=== PATIENT | male | born 1950 | race Caucasian/White ===

== ENCOUNTER 2020-02-18 05:16 | Inpatient (IN) ==
[2020-02-18] MEDS ORDERED: PANTOPRAZOLE 40 MG VIAL IV STA (05:45)
[2020-02-18] MEDS ORDERED: SODIUM CHLORIDE 0.9% 500 ML IV STA (05:45)
[2020-02-18] MEDS ORDERED: ONDANSETRON 4 MG/2 ML VIAL IV STA (05:45)
[2020-02-18 07:08] LABS: Alanine Aminotransferase 13 U/L (16-61); Albumin 1.9 G/DL (3.4-5.0); Alkaline Phosphatase 42 U/L (45-117); Amylase 53 U/L (25-115); Aspartate Amino Transferase 14 U/L (0-37); Bilirubin,Total < 0.39 MG/DL (0.2-1.0); Blood Urea Nitrogen 29 MG/DL (7-18); Estimated Glom Filtration Rate 55 ML/MIN; Glucose 245 MG/DL (74-106); Osmolality,Calculated 290.5 MOS/KG (273-304); Total Protein 4.7 G/DL (6.4-8.3); Troponin I 0.027 NG/ML (0.00-0.045)
[2020-02-18 07:11] LABS: Basophils % 0.1 % (0.0-0.8); Eosinophils % 0.4 % (0.00-10.9); Hematocrit 21.2 VOL% (42.0-52.0); Hemoglobin 6.5 GM/DL (14.0-18.0); Immature Granulocytes % 4.4 %; Immature Granulocytes Absolute 0.33 #; Lymphocytes # 0.6 10*3/uL (1.4-4.0); Mean Corpuscular HGB Conc 30.7 GM/DL (32-36); Mean Corpuscular Volume 89.8 FL (87-102); Mean Platelet Volume 12.9 FL (9.6-12.0); Monocytes % 4.8 % (1.7-12.7); Neutrophils % 82.3 % (38.7-73.9); Platelet Count 114 T/CUMM (130-400); Red Blood Count 2.36 MC/CUMM (3.8-5.5); White Blood Count 7.5 T/CUMM (4-12)
[2020-02-18 07:16] LABS: INR 1.1; PT Patient Result 11.9 SECS (9.8-11.9)
[2020-02-18] MEDS ORDERED: SODIUM CHLORIDE 0.9% 1,000 ML IV PRN ×4 (07:42→17:28)
[2020-02-18] MEDS ORDERED: DEXTROSE 50% 25 GM/50 ML VIAL IV PRN (08:20)
[2020-02-18] MEDS ORDERED: GLUCAGON 1 MG VIAL IM PRN (08:20)
[2020-02-18] MEDS ORDERED: FUROSEMIDE 20 MG/2 ML VIAL IV ONE (08:23)
[2020-02-18] MEDS ORDERED: MAGNESIUM SULF RIDER 2 GM in PREMIX 1 EACH IV ONE (08:24)
[2020-02-18] MEDS ORDERED: SODIUM CHLORIDE 0.9% 1,000 ML IV SCH (08:30)
[2020-02-18] MEDS ORDERED: PANTOPRAZOLE 40 MG VIAL IV SCH (09:00)
[2020-02-18 13:08] LABS: Apearance,Urine CLEAR (Clear); Bilirubin,Urine Negative (Negative); Blood, Urine Small mg/dL (Negative); Glucose,Urine (UA) Negative (Negative); Hyaline Casts,Urine 4 /LPF (0-3); Ketones,Urine Negative (Negative); Mucus,Urine Occasional /LPF (Occasional); Nitrite,Urine Negative (Negative); Protein,Urine Negative; RBC,Urine 20 /HPF (0-4); Squamous Epithelial Cell,Urine Occasional /HPF (0-10); Urine Color Yellow (Yellow); Urine Specific Gravity 1.014 (1.001-1.035); Urine Urobilinogen < 2.0 EU/DL (0.2-1.0); WBC,Urine <1 /HPF (0-6)
[2020-02-18] MEDS: PANTOPRAZOLE 40 MG VIAL IV SCH ×2 (15:07→21:08)
[2020-02-18] MEDS: INSULIN LISPRO 100 UNIT/ML SUBCUT SCH ×2 (16:42→19:13)
[2020-02-18] MEDS ORDERED: LACTATED RINGERS 500 ML IV ONE (17:24)
[2020-02-18 17:40] LABS: Basophils % 0.3 % (0.0-0.8); Eosinophils # 0.1 10*3/uL (0.0-0.87); Eosinophils % 0.9 % (0.00-10.9); Hematocrit 20.1 VOL% (42.0-52.0); Immature Granulocytes % 5.6 %; Immature Granulocytes Absolute 0.65 #; Lymphocytes # 1.3 10*3/uL (1.4-4.0); Lymphocytes % 11.3 % (21.2-54.2); Mean Corpuscular HGB Conc 30.8 GM/DL (32-36); Mean Corpuscular Volume 92.6 FL (87-102); Mean Platelet Volume 11.4 FL (9.6-12.0); Monocytes % 7.3 % (1.7-12.7); Neutrophils % 74.6 % (38.7-73.9); Platelet Count 188 T/CUMM (130-400); Red Blood Count 2.17 MC/CUMM (3.8-5.5); Red Cell Distribution Width 17.2 % (9.3-17.3); White Blood Count 11.5 T/CUMM (4-12)
[2020-02-18 17:53] LABS: Hemoglobin 6.2 GM/DL (14.0-18.0)
[2020-02-18] MEDS ORDERED: POLYETHYLENE GLYCOL 3350/ELECTROLYTES 4,000 ML BOTTLE NG ONE (18:00)
[2020-02-18 18:37] LABS: Lymphocytes 4 % (20-55); Microcytosis 1+; Polychromasia 1+; Segmented Neutrophils 91 % (50-85); Total Cells Counted 100
[2020-02-18 18:38] LABS: Ovalocytes 1+; Platelet Estimate Adequate
[2020-02-18] MEDS: BISACODYL 5 MG TABLET PO SCH (18:57)
[2020-02-18] MEDS ORDERED: MAGNESIUM CITRATE 300 ML BOTTLE PO ONE (21:00)
[2020-02-18] MEDS ORDERED: ONDANSETRON 4 MG/2 ML VIAL IV PRN (22:48)
[2020-02-19] MEDS: INSULIN LISPRO 100 UNIT/ML SUBCUT SCH ×4 (00:28→18:05)
[2020-02-19] MEDS: SODIUM CHLORIDE 0.9% 1,000 ML IV SCH ×3 (00:52→19:57)
[2020-02-19] MEDS: BISACODYL 5 MG TABLET PO SCH ×2 (00:52→08:34)
[2020-02-19 01:28] LABS: Alanine Aminotransferase 18 U/L (16-61); Albumin 1.6 G/DL (3.4-5.0); Alkaline Phosphatase 27 U/L (45-117); Aspartate Amino Transferase 25 U/L (0-37); Bilirubin,Total < 0.39 MG/DL (0.2-1.0); Blood Urea Nitrogen 42 MG/DL (7-18); Calcium 6.4 MG/DL (8.5-10.1); Estimated Glom Filtration Rate 44 ML/MIN; Glucose 176 MG/DL (74-106); Osmolality,Calculated 291.5 MOS/KG (273-304); Total Protein 3.7 G/DL (6.4-8.3)
[2020-02-19 01:52] LABS: Basophils # 0.1 10*3/uL (0.0-0.2); Basophils % 0.5 % (0.0-0.8); Eosinophils % 0.4 % (0.00-10.9); Hematocrit 22.2 VOL% (42.0-52.0); Hemoglobin 7.3 GM/DL (14.0-18.0); Immature Granulocytes % 4.9 %; Immature Granulocytes Absolute 0.48 #; Lymphocytes # 1.2 10*3/uL (1.4-4.0); Lymphocytes % 12.3 % (21.2-54.2); Mean Corpuscular HGB Conc 32.9 GM/DL (32-36); Mean Corpuscular Volume 89.5 FL (87-102); Mean Platelet Volume 12.1 FL (9.6-12.0); Monocytes % 5.7 % (1.7-12.7); Neutrophils % 76.2 % (38.7-73.9); Platelet Count 112 T/CUMM (130-400); Red Blood Count 2.48 MC/CUMM (3.8-5.5); Red Cell Distribution Width 15.8 % (9.3-17.3); White Blood Count 9.7 T/CUMM (4-12)
[2020-02-19 03:00] LABS: Hematocrit 20.1 VOL% (42.0-52.0); Hemoglobin 6.6 GM/DL (14.0-18.0)
[2020-02-19] MEDS ORDERED: SODIUM CHLORIDE 0.9% 1,000 ML IV PRN (03:22)
[2020-02-19] MEDS ORDERED: PROMETHAZINE 25 MG/1 ML VIAL IM ONE (03:42)
[2020-02-19] MEDS ORDERED: HYDROmorphone 2 MG/1 ML VIAL IV PRN (06:15)
[2020-02-19] MEDS: PANTOPRAZOLE 40 MG VIAL IV SCH ×3 (07:45→21:11)
[2020-02-19] MEDS ORDERED: SUGAMMADEX 200 MG/2 ML VIAL IV ONE ×2 (08:07→12:38)
[2020-02-19] MEDS ORDERED: LIDOCAINE 2% 5 ML VIAL ONE ×2 (08:07→15:40)
[2020-02-19] MEDS ORDERED: MIDAZOLAM 2 MG/2 ML VIAL ONE (08:08)
[2020-02-19] MEDS ORDERED: SCOPOLAMINE 1.5 MG PATCH TRANSDERM ONE (08:08)
[2020-02-19] MEDS ORDERED: fentaNYL 100 MCG/2 ML VIAL ONE ×2 (08:08→15:40)
[2020-02-19] MEDS ORDERED: ONDANSETRON 4 MG/2 ML VIAL ONE (08:08)
[2020-02-19] MEDS ORDERED: SUCCINYLCHOLINE 200 MG/10 ML VIAL ONE ×2 (08:09→15:41)
[2020-02-19] MEDS ORDERED: ETOMIDATE 40 MG/20 ML VIAL IV ONE ×2 (08:09→15:40)
[2020-02-19] MEDS ORDERED: ROCURONIUM 100 MG/10 ML VIAL IV ONE ×2 (08:09→15:41)
[2020-02-19] MEDS ORDERED: CALCIUM GLUCONATE 1,000 MG in SODIUM CHLORIDE 0.9% 100 ML IV ONE (09:05)
[2020-02-19] MEDS ORDERED: HYDROCORTISONE 100 MG VIAL ONE (09:12)
[2020-02-19] MEDS ORDERED: SEVOFLURANE 1 UNIT/15 MINUTE INH ONE ×2 (09:12→15:40)
[2020-02-19] MEDS ORDERED: SODIUM CHLORIDE 0.9% 250 ML IV ONE (09:12)
[2020-02-19] MEDS ORDERED: PHENYLEPHRINE 10 MG/1 ML VIAL IV ONE (09:12)
[2020-02-19] MEDS ORDERED: LACTATED RINGERS 1,000 ML IV ONE ×2 (09:12→15:41)
[2020-02-19 10:10] LABS: Hematocrit 24.4 VOL% (42.0-52.0)
[2020-02-19 10:11] LABS: Hemoglobin 8.2 GM/DL (14.0-18.0)
[2020-02-19] MEDS ORDERED: HEPARIN/NACL 0.9% 2 UNITS/ML 2,000 ML IV ONE (12:34)
[2020-02-19] MEDS ORDERED: ePHEDrine 50 MG/ML VIAL ONE (15:32)
[2020-02-19] MEDS ORDERED: PHENYLEPHRINE 1 MG/10 ML SYRINGE IV ONE (15:40)
[2020-02-19] MEDS ORDERED: GLYCOPYRROLATE 0.4 MG/2 ML VIAL ONE (15:40)
[2020-02-19] MEDS ORDERED: NEOSTIGMINE 10 MG/10 ML VIAL ONE (15:41)
[2020-02-20] MEDS: INSULIN LISPRO 100 UNIT/ML SUBCUT SCH ×4 (00:50→18:50)
[2020-02-20] MEDS: SODIUM CHLORIDE 0.9% 1,000 ML IV SCH (02:10)
[2020-02-20 03:53] LABS: Basophils % 0.2 % (0.0-0.8); Eosinophils # 0.2 10*3/uL (0.0-0.87); Immature Granulocytes % 6.5 %; Immature Granulocytes Absolute 0.59 #; Lymphocytes % 10.4 % (21.2-54.2); Mean Corpuscular HGB Conc 33.1 GM/DL (32-36); Mean Corpuscular Volume 89.9 FL (87-102); Mean Platelet Volume 10.9 FL (9.6-12.0); Monocytes % 8.2 % (1.7-12.7); NRBC # 0.03 10*3/uL; Neutrophils % 72.7 % (38.7-73.9); Platelet Count 64 T/CUMM (130-400); Red Blood Count 1.88 MC/CUMM (3.8-5.5); Red Cell Distribution Width 16.3 % (9.3-17.3); White Blood Count 9.1 T/CUMM (4-12)
[2020-02-20 03:56] LABS: Hemoglobin 5.6 GM/DL (14.0-18.0)
[2020-02-20 03:57] LABS: Hematocrit 16.9 VOL% (42.0-52.0)
[2020-02-20] MEDS ORDERED: SODIUM CHLORIDE 0.9% 1,000 ML IV PRN (04:09)
[2020-02-20 04:24] LABS: Calcium 6.4 MG/DL (8.5-10.1); Osmolality,Calculated 286.7 MOS/KG (273-304)
[2020-02-20 04:34] LABS: Eosinophils 5 % (0-10); Hypochromasia 2+; Lymphocytes 9 % (20-55); Microcytosis 1+; Segmented Neutrophils 83 % (50-85); Total Cells Counted 100
[2020-02-20] MEDS ORDERED: MAGNESIUM CITRATE 300 ML BOTTLE PO ONE (08:41)
[2020-02-20] MEDS: PANTOPRAZOLE 40 MG VIAL IV SCH (09:05)
[2020-02-20 15:00] LABS: Basophils # 0.1 10*3/uL (0.0-0.2); Basophils % 0.4 % (0.0-0.8); Eosinophils # 0.1 10*3/uL (0.0-0.87); Eosinophils % 0.7 % (0.00-10.9); Hematocrit 20.7 VOL% (42.0-52.0); Immature Granulocytes % 4.7 %; Immature Granulocytes Absolute 0.56 #; Lymphocytes # 1.4 10*3/uL (1.4-4.0); Lymphocytes % 11.4 % (21.2-54.2); Mean Corpuscular HGB Conc 33.3 GM/DL (32-36); Mean Corpuscular Volume 91.6 FL (87-102); Mean Platelet Volume 11.1 FL (9.6-12.0); Monocytes % 4.9 % (1.7-12.7); NRBC # 0.13 10*3/uL; Neutrophils % 77.9 % (38.7-73.9); Red Blood Count 2.26 MC/CUMM (3.8-5.5); Red Cell Distribution Width 15.5 % (9.3-17.3)
[2020-02-20 15:08] LABS: Hemoglobin 6.9 GM/DL (14.0-18.0); Platelet Count 114 T/CUMM (130-400)
[2020-02-20 15:37] LABS: Band Neutrophils 1 % (0-10); Hypochromasia Slight; Lymphocytes 6 % (20-55); Platelet Estimate Adequate; Segmented Neutrophils 90 % (50-85); Total Cells Counted 100
[2020-02-20 17:19] LABS: ABG Base Excess -19.5 MMOL/L (-2.5-2.5); ABG HCO3 9.7 MMOL/L (20-26); ABG Oxygen Saturation 96.7 % (95-100); ABG PCO2 24.8 MM HG (35-48); ABG TCO2 8.2 MMOL/L (23-27); Glucose Heart Surgery 156 MG/DL (74-106); Hematocrit Heart Surgery 21.1 PERCENT (42-52); Hemoglobin Heart Surgery 6.7 G/DL (14.0-18.0); Potassium Heart/CVR 5.2 MMOL/L (3.5-5.1)
[2020-02-20 17:21] LABS: ABG PH 7.135 (7.35-7.45)
[2020-02-20] MEDS ORDERED: SUCCINYLCHOLINE 200 MG/10 ML VIAL ONE (17:39)
[2020-02-20] MEDS ORDERED: ETOMIDATE 20 MG/10 ML VIAL IV ONE (17:39)
[2020-02-20] MEDS ORDERED: MIDAZOLAM 100 MG in SODIUM CHLORIDE 0.9% 80 ML IV PRN (17:40)
[2020-02-20] MEDS ORDERED: NOREPINEPHRINE 4 MG/4 ML VIAL IV ONE (17:42)
[2020-02-20] MEDS ORDERED: NOREPINEPHRINE 8 MG in SODIUM CHLORIDE 0.9% 242 ML IV PRN (17:42)
[2020-02-20] MEDS ORDERED: DOPamine 800 MG/250 ML PREMIX IV ONE (17:53)
[2020-02-20 18:33] VITALS: BP 0/0
== END 2020-02-20 18:14 | disposition expired | DRG 377 ==
LOC: EDBD → EDUNIT# → N.ED 05:16 → SUATTDRO 08:19 → N.EDINP 08:19 → N.TELEN 16:12 → N.ICU 02-19 04:41
PROVIDERS: ADMIT Internal Medicine; ATTEND Internal Medicine